=== PATIENT | female | born 1985 | race Two or more races ===

== ENCOUNTER 2017-12-19 11:18 | Inpatient (IN) | payer MEDICAID ==
[~2017-12-19] VITALS: Ht 157.5 cm; Wt 128.6 kg
[~2017-12-19 11:18] MED LIST: ASPI325T4 PO; LORA2TAB10 PO
[2017-12-19] MEDS ORDERED: LORazepam 2MG/ML-1ML VIAL IV ONE (11:30)
[2017-12-19] MEDS ORDERED: METOPROLOL TARTRATE 1MG/1ML-5ML VIAL IV ONE (11:30)
[2017-12-19] MEDS ORDERED: AMIODARONE HCL 150 MG in D5W 5% 100 ML IV ONE ×2 (11:45→15:45)
[2017-12-19] MEDS ORDERED: MAGNESIUM SULFATE 1GM/100ML 100 ML IV ONE (11:45)
[2017-12-19 11:46] LABS: Basophils # (auto) 0.1 uL; Basophils % (auto) 0.4 % (0.0-2.0); Eosinophils # (auto) 0.4 uL; Eosinophils % (auto) 2.2 % (0.0-7.0); Hematocrit 42.4 % (36.0-46.0); Lymphocytes # (auto) 1.4 uL; Lymphocytes % (auto) 8.1 % (10.0-50.0); Mean Corpuscular Hemoglobin 27.9 pg (28.0-32.0); Mean Corpuscular Volume 84.4 fL (80.0-100.0); Monocytes # (auto) 1.3 uL; Monocytes % (auto) 7.8 % (0.0-12.0); Neutrophils # (auto) 13.8 uL; Neutrophils % (auto) 81.5 % (37.0-80.0); Nucleated Red Blood Cells % 0.1 %; Platelet Count (auto) 318 10^3/uL (140-450); Red Blood Cells 5.02 10^6/uL (4.0-5.20); White Blood Cell 16.9 10^3/uL (4.4-10.8)
[2017-12-19] MEDS ORDERED: AMIODARONE HCL 900 MG in DEXTROSE 500 ML IV SCH ×3 (11:46→15:50)
[2017-12-19 12:01] LABS: INR 1.02 (0.9-1.15); Prothrombin Time 10.9 sec (9.27-12.13)
[2017-12-19 12:05] LABS: Alanine Aminotransferase 21 U/L (13-56); Albumin 3.2 g/dL (3.4-5.0); Alkaline Phosphatase 87 U/L (45-117); Anion Gap 11 (5-15); Aspartate Aminotransferase 17 U/L (15-37); BUN/Creatinine Ratio 9.1; Bilirubin, Total 3.5 mg/dL (0.2-1.0); Blood Urea Nitrogen 7 mg/dL (7-18); Calcium 8.4 mg/dL (8.5-10.1); Carbon Dioxide 19 mmol/L (21-32); Chloride 109 mmol/L (98-107); GFR African American 112 mL/min; GFR Non-African American 93 mL/min; Glucose 122 mg/dL (74-106); Potassium 3.4 mmol/L (3.5-5.1); Sodium 139 mmol/L (136-145); Total Protein 7.4 g/dL (6.4-8.2)
[2017-12-19] MEDS ORDERED: DIGOXIN (250MCG/ML) 2 ML AMPULE IV ONE (12:15)
[2017-12-19] MEDS ORDERED: NALBUPHINE HCL 10 MG/1ml INJECTION IV ONE (12:15)
[2017-12-19] MEDS ORDERED: ASPirin 81 mg TAB PO ONE (12:15)
[2017-12-19] MEDS ORDERED: NITROGLYCERIN 0.4 MG SL TAB SL ONE (12:15)
[2017-12-19] MEDS ORDERED: PROMETHAZINE HCL 25 MG/ML 1ML IV ONE (12:15)
[2017-12-19] MEDS ORDERED: DILTIAZEM HCL 180MG ER CAP PO ONE (12:15)
[2017-12-19] MEDS ORDERED: SODIUM CHLORIDE 0.9% 500 ML IV ONE (14:00)
[2017-12-19] MEDS ORDERED: NITROGLYCERIN 0.4 MG SL TAB SL PRN ×2 (15:45)
[2017-12-19] MEDS ORDERED: ALUM & MAG HYDROX-SIMETH LIQ(MAALOX) 30 ML PO ONE (15:45)
[2017-12-19] MEDS ORDERED: ONDANSETRON HCL 4 MG/2 ML VIAL IV PRN (15:45)
[2017-12-19] MEDS ORDERED: ACETAMINOPHEN 325 MG TAB PO PRN (15:45)
[2017-12-19] MEDS ORDERED: NALBUPHINE HCL 10 MG/1ml INJECTION IV PRN (16:00)
[2017-12-19] MEDS ORDERED: POTASSIUM CHLORIDE 8 MEQ TAB PO ONE (16:00)
[2017-12-19] MEDS: AMIODARONE HCL 900 MG in DEXTROSE 500 ML IV SCH ×2 (17:45→18:35)
[2017-12-19] MEDS: BOOST PLUS 8 ounce PO SCH (18:31)
[2017-12-19] MEDS ORDERED: DIGOXIN 0.25 MG TAB PO ONE (19:00)
[2017-12-19] MEDS: CARVEDILOL 3.125 MG TAB PO SCH ×2 (22:21→23:37)
[2017-12-19] MEDS: SODIUM CHLOR 0.9% PF (SALINE LOCK) 10ML VIAL/SYR IV SCH (22:22)
[2017-12-19] MEDS: ENALAPRIL MALEATE 2.5 MG TAB PO SCH (22:22)
[2017-12-19] MEDS: ENOXAPARIN SOD 100 MG/1 ML SYRINGE SC SCH (22:22)
[2017-12-19] MEDS: ATORVASTATIN 20 MG TAB PO SCH (22:22)
[2017-12-19] MEDS ORDERED: VANCOMYCIN PER PHARMACY 0 MG IV SCH (23:15)
[2017-12-20] LABS: Urine Bacteria FEW /hpf (None Seen); Urine Blood Negative /uL (Negative); Urine Mucus FEW (None Seen); Urine Specific Gravity 1.012 (1.001-1.035); Urine WBC 1 /hpf (0 - 5)
[2017-12-20] MEDS ORDERED: VANCOMYCIN 1GM/250ML 250 ML IV ONE
[2017-12-20] MEDS: PIPERACILLIN-TAZOB 3.375GM 100 ML IV SCH ×4 (00:03→18:06)
[2017-12-20] MEDS: ZOLPIDEM TARTRATE 5 MG TAB PO PRN (00:03)
[2017-12-20] MEDS: SODIUM CHLOR 0.9% PF (SALINE LOCK) 10ML VIAL/SYR IV SCH ×3 (06:21→22:00)
[2017-12-20 06:26] LABS: Basophils # (auto) 0 uL; Basophils % (auto) 0.4 % (0.0-2.0); Eosinophils # (auto) 0.5 uL; Eosinophils % (auto) 4.8 % (0.0-7.0); Hematocrit 37.2 % (36.0-46.0); Hemoglobin 12.6 g/dL (12.2-16.2); Lymphocytes # (auto) 1.5 uL; Lymphocytes % (auto) 14.8 % (10.0-50.0); Mean Corpuscular Hemoglobin 28.9 pg (28.0-32.0); Mean Corpuscular Hgb Conc. 33.8 g/dL (32.0-36.0); Mean Corpuscular Volume 85.6 fL (80.0-100.0); Monocytes # (auto) 1.1 uL; Monocytes % (auto) 10.6 % (0.0-12.0); Neutrophils # (auto) 7.1 uL; Neutrophils % (auto) 69.4 % (37.0-80.0); Nucleated Red Blood Cells % 0.2 %; Platelet Count (auto) 241 10^3/uL (140-450); Red Blood Cells 4.34 10^6/uL (4.0-5.20); Red Cell Distribution Width 15.1 % (11.8-14.3); White Blood Cell 10.2 10^3/uL (4.4-10.8)
[2017-12-20 06:52] LABS: Alanine Aminotransferase 18 U/L (13-56); Albumin 2.9 g/dL (3.4-5.0); Alkaline Phosphatase 72 U/L (45-117); Anion Gap 8 (5-15); Aspartate Aminotransferase 17 U/L (15-37); BUN/Creatinine Ratio 16.1; Bilirubin, Total 2.2 mg/dL (0.2-1.0); Blood Urea Nitrogen 10 mg/dL (7-18); Carbon Dioxide 23 mmol/L (21-32); Chloride 108 mmol/L (98-107); Cholesterol 134 mg/dL (< 200); GFR African American 144 mL/min; GFR Non-African American 119 mL/min; Glucose 103 mg/dL (74-106); HDL Cholesterol 48 mg/dL (40-59); LDL Cholesterol 80 mg/dL (< 100); Magnesium 2.3 mg/dL (1.6-2.6); Potassium 3.6 mmol/L (3.5-5.1); Sodium 139 mmol/L (136-145); Total Protein 6.6 g/dL (6.4-8.2); Triglycerides 81 mg/dL (< 150)
[2017-12-20] MEDS: BOOST PLUS 8 ounce PO SCH ×3 (08:16→18:00)
[2017-12-20] MEDS ORDERED: ENOXAPARIN SOD 120 MG/0.8 ML SYRINGE SC ONE (09:22)
[2017-12-20] MEDS: DOCUSATE SOD 100 MG CAP PO SCH (09:32)
[2017-12-20] MEDS: ENOXAPARIN SOD 100 MG/1 ML SYRINGE SC SCH ×2 (09:32→22:00)
[2017-12-20] MEDS: ASPirin 81 mg TAB PO SCH (09:32)
[2017-12-20] MEDS ORDERED: CLOPIDOGREL BISULFATE 75 MG TAB PO SCH (10:00)
[2017-12-20] MEDS: ENALAPRIL MALEATE 2.5 MG TAB PO SCH ×2 (10:25→22:00)
[2017-12-20] MEDS ORDERED: AMIODARONE HCL 200 MG TAB PO ONE (10:45)
[2017-12-20] MEDS ORDERED: SODIUM CHLORIDE 0.9% 1,000 ML IV SCH (17:00)
[2017-12-20] MEDS ORDERED: AMIODARONE HCL 900 MG in DEXTROSE 500 ML IV SCH (18:45)
[2017-12-20] MEDS: LORazepam 0.5 MG TAB PO PRN (20:13)
[2017-12-20] MEDS ORDERED: AMIODARONE HCL 200 MG TAB PO SCH (22:00)
[2017-12-20] MEDS ORDERED: DRONEDARONE PO SCH (22:00)
[2017-12-20] MEDS: CARVEDILOL 3.125 MG TAB PO SCH (22:00)
[2017-12-20] MEDS: ATORVASTATIN 20 MG TAB PO SCH (22:00)
[2017-12-21] MEDS: PIPERACILLIN-TAZOB 3.375GM 100 ML IV SCH ×2 (00:16→06:02)
[2017-12-21] MEDS ORDERED: DILTIAZEM HCL 25 MG/5 ML VIAL IV ONE (03:00)
[2017-12-21] MEDS: LORazepam 0.5 MG TAB PO PRN ×2 (04:39→12:59)
[2017-12-21 05:16] LABS: Basophils # (auto) 0 uL; Basophils % (auto) 0.5 % (0.0-2.0); Eosinophils # (auto) 0.4 uL; Eosinophils % (auto) 4.7 % (0.0-7.0); Hematocrit 37.7 % (36.0-46.0); Hemoglobin 12.8 g/dL (12.2-16.2); Lymphocytes # (auto) 1.6 uL; Lymphocytes % (auto) 19.4 % (10.0-50.0); Mean Corpuscular Hemoglobin 28.9 pg (28.0-32.0); Mean Corpuscular Hgb Conc. 33.8 g/dL (32.0-36.0); Mean Corpuscular Volume 85.6 fL (80.0-100.0); Monocytes # (auto) 0.9 uL; Monocytes % (auto) 11.3 % (0.0-12.0); Neutrophils # (auto) 5.2 uL; Neutrophils % (auto) 64.1 % (37.0-80.0); Nucleated Red Blood Cells % 0.1 %; Platelet Count (auto) 280 10^3/uL (140-450); Red Blood Cells 4.41 10^6/uL (4.0-5.20); Red Cell Distribution Width 14.9 % (11.8-14.3); White Blood Cell 8.1 10^3/uL (4.4-10.8)
[2017-12-21 05:34] LABS: Albumin 2.7 g/dL (3.4-5.0); BUN/Creatinine Ratio 13.1; Calcium 8.1 mg/dL (8.5-10.1); Potassium 3.4 mmol/L (3.5-5.1)
[2017-12-21 05:36] LABS: Bilirubin, Total 1.5 mg/dL (0.2-1.0); Total Protein 6.4 g/dL (6.4-8.2)
[2017-12-21] MEDS: SODIUM CHLOR 0.9% PF (SALINE LOCK) 10ML VIAL/SYR IV SCH ×3 (06:02→22:00)
[2017-12-21] MEDS ORDERED: LORazepam 2MG/ML-1ML VIAL IV ONE (07:30)
[2017-12-21] MEDS: BOOST PLUS 8 ounce PO SCH ×3 (08:04→18:00)
[2017-12-21] MEDS: CARVEDILOL 3.125 MG TAB PO SCH ×2 (09:44→21:38)
[2017-12-21] MEDS: ASPirin 81 mg TAB PO SCH (09:44)
[2017-12-21] MEDS: ENOXAPARIN SOD 100 MG/1 ML SYRINGE SC SCH (09:45)
[2017-12-21] MEDS: ENALAPRIL MALEATE 2.5 MG TAB PO SCH (09:45)
[2017-12-21] MEDS: DOCUSATE SOD 100 MG CAP PO SCH (09:46)
[2017-12-21] MEDS: DRONEDARONE HCL 400 MG TAB PO SCH ×3 (10:00→22:00)
[2017-12-21] MEDS: LORazepam 2MG/ML-1ML VIAL IV PRN (14:56)
[2017-12-21 15:50] VITALS: BP 118/81
[2017-12-21] MEDS ORDERED: APIXABAN 5 MG TAB PO ONE (21:15)
[2017-12-21 22:22] VITALS: BP 131/84
[2017-12-22] MEDS: ZOLPIDEM TARTRATE 5 MG TAB PO PRN (00:10)
[2017-12-22] MEDS: LORazepam 2MG/ML-1ML VIAL IV PRN (05:10)
[2017-12-22 05:37] VITALS: BP 133/71
[2017-12-22] MEDS: SODIUM CHLOR 0.9% PF (SALINE LOCK) 10ML VIAL/SYR IV SCH ×3 (06:00→21:41)
[2017-12-22 06:23] LABS: BUN/Creatinine Ratio 14.5; Calcium 8.5 mg/dL (8.5-10.1); Potassium 3.4 mmol/L (3.5-5.1)
[2017-12-22 06:25] LABS: Basophils # (auto) 0 uL; Basophils % (auto) 0.3 % (0.0-2.0); Eosinophils # (auto) 0.4 uL; Eosinophils % (auto) 4.5 % (0.0-7.0); Hematocrit 35.4 % (36.0-46.0); Hemoglobin 11.9 g/dL (12.2-16.2); Lymphocytes # (auto) 1.8 uL; Lymphocytes % (auto) 19.6 % (10.0-50.0); Mean Corpuscular Hemoglobin 28.5 pg (28.0-32.0); Mean Corpuscular Hgb Conc. 33.6 g/dL (32.0-36.0); Mean Corpuscular Volume 84.7 fL (80.0-100.0); Monocytes % (auto) 11.2 % (0.0-12.0); Neutrophils % (auto) 64.4 % (37.0-80.0); Platelet Count (auto) 278 10^3/uL (140-450); Red Blood Cells 4.18 10^6/uL (4.0-5.20); Red Cell Distribution Width 14.8 % (11.8-14.3); White Blood Cell 9.3 10^3/uL (4.4-10.8)
[2017-12-22] MEDS ORDERED: LIDOCAINE 2%HCL (LOCAL ANESTH.) INJ 20ML MDV ONE (07:09)
[2017-12-22] MEDS ORDERED: fentaNYL CITRATE 100 MCG/2 ML VL ONE (07:21)
[2017-12-22] MEDS ORDERED: MIDAZOLAM HCL 1MG/1ML-2 ML VIAL ONE (07:21)
[2017-12-22] MEDS ORDERED: DRONEDARONE HCL 400 MG TAB PO ONE (07:31)
[2017-12-22] MEDS: BOOST PLUS 8 ounce PO SCH ×3 (08:00→18:00)
[2017-12-22] MEDS ORDERED: DIGOXIN (250MCG/ML) 2 ML AMPULE IV ONE (08:30)
[2017-12-22] MEDS: POTASSIUM CHL 20MEQ/100ML 100 ML IV SCH ×2 (08:30→12:19)
[2017-12-22] MEDS: ASPirin 81 mg TAB PO SCH (10:14)
[2017-12-22] MEDS: DOCUSATE SOD 100 MG CAP PO SCH (10:14)
[2017-12-22] MEDS: DRONEDARONE HCL 400 MG TAB PO SCH ×2 (10:16→21:39)
[2017-12-22] MEDS: CARVEDILOL 3.125 MG TAB PO SCH ×2 (10:16→21:41)
[2017-12-22] MEDS: APIXABAN 5 MG TAB PO SCH ×2 (10:16→21:38)
[2017-12-22 12:30] LABS: Potassium 4.2 mmol/L (3.5-5.1)
[2017-12-22 13:00] VITALS: BP 133/88
[2017-12-22 17:00] VITALS: BP 125/73
[2017-12-22 21:48] VITALS: BP 148/85
[2017-12-23 05:00] VITALS: BP 120/69
[2017-12-23] MEDS: SODIUM CHLOR 0.9% PF (SALINE LOCK) 10ML VIAL/SYR IV SCH ×2 (05:21→14:07)
[2017-12-23 06:00] LABS: Basophils # (auto) 0 uL; Basophils % (auto) 0.3 % (0.0-2.0); Eosinophils # (auto) 0.4 uL; Eosinophils % (auto) 4.2 % (0.0-7.0); Hematocrit 36.4 % (36.0-46.0); Hemoglobin 12.3 g/dL (12.2-16.2); Lymphocytes # (auto) 1.7 uL; Lymphocytes % (auto) 17.9 % (10.0-50.0); Mean Corpuscular Hemoglobin 28.8 pg (28.0-32.0); Mean Corpuscular Hgb Conc. 33.8 g/dL (32.0-36.0); Mean Corpuscular Volume 85.2 fL (80.0-100.0); Monocytes # (auto) 0.8 uL; Monocytes % (auto) 8.6 % (0.0-12.0); Neutrophils # (auto) 6.5 uL; Nucleated Red Blood Cells % 0.1 %; Platelet Count (auto) 266 10^3/uL (140-450); Red Blood Cells 4.27 10^6/uL (4.0-5.20); Red Cell Distribution Width 14.7 % (11.8-14.3); White Blood Cell 9.4 10^3/uL (4.4-10.8)
[2017-12-23 06:12] LABS: Calcium 8.4 mg/dL (8.5-10.1); Potassium 4.1 mmol/L (3.5-5.1)
[2017-12-23 06:14] LABS: BUN/Creatinine Ratio 11.3
[2017-12-23] MEDS: BOOST PLUS 8 ounce PO SCH ×3 (08:00→18:00)
[2017-12-23 08:30] VITALS: BP 124/70
[2017-12-23] MEDS: APIXABAN 5 MG TAB PO SCH (09:44)
[2017-12-23] MEDS: DRONEDARONE HCL 400 MG TAB PO SCH (09:44)
[2017-12-23] MEDS: DOCUSATE SOD 100 MG CAP PO SCH (09:46)
[2017-12-23] MEDS: CARVEDILOL 3.125 MG TAB PO SCH (09:46)
[2017-12-23 12:30] VITALS: BP 122/71
[2017-12-23 16:33] VITALS: BP 136/90
== END 2017-12-23 18:56 | disposition home or self-care (01) | DRG 175 ==
LOC: EDBD 11:18 → ER 11:19 → TELE 11:20 → TELE-CENTR 12-21 15:41
PROVIDERS: ADMIT Internal Medicine; ATTEND Internal Medicine
PROC: 02583ZZ Destruction of Conduction Mechanism, Percutaneous Approach (ICD-10-PCS; principal; 2017-12-22)
PROC: 02K83ZZ Map Conduction Mechanism, Percutaneous Approach (ICD-10-PCS; 2017-12-22)
DX: I48.0 Paroxysmal atrial fibrillation (principal); D68.69 Other thrombophilia; E44.0 Moderate protein-calorie malnutrition; Z68.43 Body mass index [BMI] 50.0-59.9, adult; E83.51 Hypocalcemia; I48.92 Unspecified atrial flutter; I10 Essential (primary) hypertension; E87.6 Hypokalemia; E78.5 Hyperlipidemia, unspecified; F41.9 Anxiety disorder, unspecified; R07.89 Other chest pain; I47.1 Supraventricular tachycardia; E66.9 Obesity, unspecified; I48.2 Chronic atrial fibrillation; Z79.82 Long term (current) use of aspirin; Z82.49 Family history of ischemic heart disease and other diseases of the circulatory system; Z83.3 Family history of diabetes mellitus; Z90.49 Acquired absence of other specified parts of digestive tract
CPT/HCPCS: 36415; 71045; 80048; 80053; 80061; 81001; 83735; 84132; 84443; 84484; 84702; 85025; 85610; 85730; 87040; 87086; 93005; 93306; 93656; 96361; 96365; 96375; 99152; 99291; J2250; J2405; J2543; J3480; J7060

== ENCOUNTER 2018-10-15 09:46 | Emergency (ER) | payer MEDICAID ==
[~2018-10-15] VITALS: Ht 154.9 cm; Wt 112.9 kg
[2018-10-15 10:55] VITALS: BP 126/76
== END 2018-10-15 11:43 | disposition home or self-care (01) ==
LOC: ER 09:46
DX: S63.601A Unspecified sprain of right thumb, initial encounter (principal); I48.91 Unspecified atrial fibrillation; E78.5 Hyperlipidemia, unspecified; Z90.49 Acquired absence of other specified parts of digestive tract; W18.39XA Other fall on same level, initial encounter; Y93.89 Activity, other specified; Y99.8 Other external cause status; Y92.39 Other specified sports and athletic area as the place of occurrence of the external cause
CPT/HCPCS: 29125; 73130; 81002; 81025

== ENCOUNTER 2019-04-26 22:55 | Emergency (ER) | payer SELFPAY ==
[~2019-04-26] VITALS: Ht 157.5 cm; Wt 108.9 kg
[2019-04-26 23:57] LABS: Basophils # (auto) 0 uL; Basophils % (auto) 0.7 % (0.0-2.0); Eosinophils # (auto) 0.3 uL; Eosinophils % (auto) 4.1 % (0.0-7.0); Hematocrit 32.5 % (36.0-46.0); Hemoglobin 10.8 g/dL (12.2-16.2); Lymphocytes # (auto) 1.8 uL; Lymphocytes % (auto) 25.7 % (10.0-50.0); Mean Corpuscular Hemoglobin 28.7 pg (28.0-32.0); Mean Corpuscular Hgb Conc. 33.1 g/dL (32.0-36.0); Mean Corpuscular Volume 86.6 fL (80.0-100.0); Monocytes # (auto) 0.8 uL; Monocytes % (auto) 11.1 % (0.0-12.0); Neutrophils % (auto) 58.4 % (37.0-80.0); Nucleated Red Blood Cells % 0.1 %; Platelet Count (auto) 235 10^3/uL (140-450); Red Blood Cells 3.75 10^6/uL (4.0-5.20); Red Cell Distribution Width 15.7 % (11.8-14.3); White Blood Cell 6.8 10^3/uL (4.4-10.8)
[2019-04-27] MEDS ORDERED: DILTIAZEM HCL 60 MG TAB PO ONE
[2019-04-27 00:13] LABS: Albumin 2.2 g/dL (3.4-5.0); Anion Gap 7 (5-15); BUN/Creatinine Ratio 20.7; Blood Urea Nitrogen 18 mg/dL (7-18); Calcium 6.1 mg/dL (8.5-10.1); Carbon Dioxide 17 mmol/L (21-32); Chloride 121 mmol/L (98-107); GFR African American 97 mL/min; GFR Non-African American 80 mL/min; Glucose 81 mg/dL (74-106); Potassium 3.1 mmol/L (3.5-5.1); Sodium 145 mmol/L (136-145)
[2019-04-27 00:14] LABS: INR 1.16 (0.9-1.15); Partial Thromboplastin Time 27.9 sec (23.64-32.05)
[2019-04-27 00:18] LABS: Alanine Aminotransferase 16 U/L (13-56); Alkaline Phosphatase 52 U/L (45-117); Aspartate Aminotransferase 15 U/L (15-37); Bilirubin, Total 0.6 mg/dL (0.2-1.0); Total Protein 4.9 g/dL (6.4-8.2)
[2019-04-27 01:33] LABS: Urine Bacteria FEW /hpf (None Seen); Urine Blood Negative /uL (Negative); Urine Specific Gravity 1.012 (1.001-1.035); Urine WBC <1 /hpf (0 - 5)
[2019-04-27] MEDS ORDERED: DILTIAZEM HCL 25 MG/5 ML VIAL IV ONE ×2 (02:30)
[2019-04-27 03:30] VITALS: BP 105/65
[2019-04-27] MEDS ORDERED: POTASSIUM EFFERVESENT TAB 25 MEQ PO ONE (05:30)
== END 2019-04-27 05:55 | disposition home or self-care (01) ==
LOC: EDBD 22:55 → ER 23:01
DX: I48.20 Chronic atrial fibrillation, unspecified (principal); F41.9 Anxiety disorder, unspecified; R42 Dizziness and giddiness; E78.5 Hyperlipidemia, unspecified; Z90.49 Acquired absence of other specified parts of digestive tract; Z88.8 Allergy status to other drugs, medicaments and biological substances
CPT/HCPCS: 36415; 71045; 80053; 81001; 83880; 84484; 85025; 85610; 85730; 93005; 94761; 96374; 96376